=== PATIENT | male | born 1955 | race Caucasian/White ===

== ENCOUNTER 2019-04-12 01:19 | Outpatient (CLI) | payer MEDICAID, SELFPAY ==
--- NOTE | 2019-04-12 10:30 | DI.US_ITS ---
APPROVED REPORT EXAM: Comprehensive 2D, Doppler, and color-flow Echocardiogram Patient Location: Out-Patient [facility] Crewmember: SUGEY Ngo (AE) Indications: New onset murmur Conclusion Left Ventricle : The left ventricle is normal size. Mild concentric left ventricular hypertrophy. The overall left ventricular systolic function appears normal. There is normal LV segmental wall motion. LVEF is 55-60%. The left ventricular diastolic function is normal. Right Ventricle : The right ventricle is normal size. Right ventricular systolic function could not b e assessed. Atria : Left atrium is mildly dilated. The right atrium size is normal. Aortic Valve : Aortic valve is trileaflet. No aortic regurgitation is present. There is no aortic juan daniel vular stenosis. Mitral Valve : There is mitral annular calcification. Trace mitral regurgitation. No evidence of mitr al valve stenosis. Tricuspid Valve : The tricuspid valve is normal in structure. Trace to mild tricuspid regurgitation. Great Vessels : IVC is normal in size and collapses >50% with inspiration. Estimated RVSP is 26-30 m mHg. There is no prior echocardiogram available for comparison. Wall motion Left Ventricle The left ventricle is normal size. The overall left ventricular systolic function appears normal. Mil d concentric left ventricular hypertrophy. There is normal LV segmental wall motion. The left ventric ular diastolic function is normal. LVEF is 55-60%. Right Ventricle The right ventricle is normal size. Right ventricular systolic function could not be assessed. Atria Left atrium is mildly dilated. The right atrium size is normal. Aortic Valve Aortic valve is trileaflet. There is no aortic valvular stenosis. No aortic regurgitation is present. Mitral Valve There is mitral annular calcification. No evidence of mitral valve stenosis. Trace mitral regurgitati on. Tricuspid Valve The tricuspid valve is normal in structure. There is no tricuspid valve stenosis. Trace to mild tricu spid regurgitation. Pulmonic Valve Pulmonic valve is not well visualized. There is no pulmonic valvular stenosis. Great Vessels The aortic root is normal in size. Ascending aorta is normal in caliber. IVC is normal in size and co llapses >50% with inspiration. Estimated RVSP is 26-30 mmHg. Pericardium There is no pericardial effusion. 2D Dimensions IVSd 1.20 cm M: 0.6-1.2 LV EDV A2C 146.78 mL PWd 1.20 cm M: 0.6 - 1.2 LV EDV A4C 164.47 mL LVDd 4.90 cm M: 4.2 - 5.8 LA Volume Index A2C 24.16 mL/m2 LVDs 3.45 cm M: 2.5 - 4.0 LA Volume Index A4C 35.60 mL/m2 Aortic Root 3.15 cm M: 3.1 - 3.7 LA Volume Index Biplane 31.12 mL/m2 Left Atrium 4.02 cm M: 3.0 - 4.0 LA Area A4C 26.29 cm2 RA Area A4C 18.06 cm2 LA Area A2C 20.40 cm2 LVOT 1.95 cm (M/F) 1.5-2.5 LA/Aortic Root Ratio 0.79 Ascending Aorta 3.85 cm M: 2.6 - 3.4 EF AP4 62.06 % LVEF (Teich) 56.29 % EF AP2 61.50 % LVEF (Hearn's) 61.94 % M: 52 - 72 EF BP 61.94 % LV Volume 108.91 mL M: 62 - 150 LV Volume Index 39.89 mL/m2 M: 34 - 74 FS 29.45 % LV Diastology E Decel Time 199.00 (160-240 msec) E/A Ratio 1.0 MED E' 0.08 (>0.07 m/s) LV E/e MED 12.30 (<14) LAT E' 0.10 (>0.1 m/s) LV E/e LAT 10.25 (<14) Aortic Valve LVOT Area 3.08 cm2 LVOT Peak Jamar. 1.40 m/s LVOT Mean Jamar. 0.87 m/s LVOT Peak Gr. 8.30 mmHg KEVIN Vmax Index 1.00 cm2/m2 LVOT Mean Gr. 3.70 mmHg LVOT VTI 0.30 m KEVIN Mean Jamar. Index 0.88 cm2/m2 AoV Peak Jamar. 1.63 (0.5-1.3 m/s) AoV Mean Jamar. 1.11 m/s AO Peak GR. 10.57 mmHg AO Mean GR. 5.75 (<5 mmHg) AO VTI 0.35 (0.18-0.25 m) KEVIN (VTI) 2.81 (2.5-4.5 cm2) KEVIN (VTI) Index 1.03 cm/m2 Mitral Valve MV E Max Jamar. 1.02 (0.4-1.3 m/s) MV A Velocity 1.00 (0.4-1.3 m/s) E/A Ratio 1.00 MV Decel. Time 198.90 (160-240 msec) MV PHT 57.68 msec MVA PHT 3.80 cm2 Pulmonary Valve PV Peak Velocity 1.01 (0.5-1.5 m/s) Tricuspid Valve TR P. Velocity 2.57 m/s TV Regurg Vmax 2.57 m/s RAP Estimate 3.00 mmHg RVSP 29.35 mmHg TR P. Gradient 26.35 mmHg
== END 2019-04-12 01:39 ==
PROVIDERS: PCP Family Medicine; Visit Provider Family Medicine
DX: R01.1 Cardiac murmur, unspecified (principal); I51.7 Cardiomegaly
CPT/HCPCS: 93306